=== PATIENT | male | born 1965 | race Hispanic/Latino ===

== ENCOUNTER 2020-08-21 19:49 | Emergency (ER) | payer SELFPAY ==
[2020-08-21] MEDS ORDERED: ACETAMINOPHEN 325 MG TAB PO PRN (20:28)
[2020-08-21] MEDS ORDERED: ALUM-MAG HYDROXIDE-SIMETHICONE 200-200-20MG/5ML ORAL LIQD 30 ML PO PRN (20:28)
[2020-08-21] MEDS ORDERED: MAGNESIUM HYDROXIDE (MOM) ORAL LIQD UDC PO PRN (20:28)
[2020-08-21] MEDS ORDERED: LORazepam 2 MG TAB PO PRN (20:30)
[2020-08-21] MEDS ORDERED: chlordiazePOXIDE 25 MG CAP PO PRN (20:30)
--- NOTE | 2020-08-21 20:32 | Emergency Department Report ---
ED Psych HPI - General Chief Complaint: Psych Stated Complaint: MH EVALUATION Time Seen by Provider: 08/21/20 20:15 Source: patient, EMS Mode of arrival: Ambulatory Limitations: No Limitations - History of Present Illness Initial Comments: Chief complaint: "I am having a nervous breakdown." HPI: This is a 54-year-old gentleman with history of bipolar disorder, alcohol abuse who presents with suicidal ideation and depression. He is having relationship difficulties with spouse. He was sent via EMS from [facility] for evaluation. He denies any physical complaints. He does not have a plan to harm himself or others. MD Complaint: suicidal ideation, feels depressed -: Gradual, days(s) (Several days) Associated Psychiatric Symptoms: depression, suicidal ideation History of same: Yes Quality: constant Improves With: none Worsens With: none Context: recent alcohol abuse Associated Symptoms: denies other symptoms Treatments Prior to Arrival: none If Self Harm: admits thoughts of - Related Data Home Medications Medication Instructions Recorded Confirmed Last Taken Unobtainable 08/22/20 08/22/20 Unknown Allergies Allergy/AdvReac Type Severity Reaction Status Date / Time No Known Allergies Allergy Unverified 08/21/20 20:07 ED Review of Systems ROS: Stated complaint: MH EVALUATION Other details as noted in HPI Comment: All other systems reviewed and negative Constitutional: denies: fever, malaise Respiratory: denies: cough, shortness of breath Cardiovascular: denies: chest pain Gastrointestinal: denies: abdominal pain, nausea, vomiting Psychiatric: depression ED Past Medical Hx - Past Medical History Previous Medical History?: Yes Hx Hypertension: Yes Hx Psychiatric Treatment: Yes (biupolar, schizophrenia) - Surgical History Past Surgical History?: No - Social History Smoking Status: Current Every Day Smoker Substance Use Type: None - Medications Home Medications: Home Medications Medication Instructions Recorded Confirmed Last Taken Type Unobtainable 08/22/20 08/22/20 Unknown History ED Physical Exam - General Limitations: No Limitations General appearance: alert, in no apparent distress, other (Mild tremor when ambulating) - Head Head exam: Present: atraumatic, normocephalic - Eye Eye exam: Present: normal appearance - ENT ENT exam: Present: mucous membranes moist - Neck Neck exam: Present: normal inspection, full ROM - Respiratory Respiratory exam: Present: normal lung sounds bilaterally. Absent: respiratory distress, wheezes, rales, rhonchi - Cardiovascular Cardiovascular Exam: Present: regular rate, normal rhythm, normal heart sounds. Absent: systolic murmur, diastolic murmur, rubs, gallop - GI/Abdominal GI/Abdominal exam: Present: soft, normal bowel sounds. Absent: distended, tenderness, guarding, rebound - Extremities Exam Extremities exam: Present: normal inspection - Back Exam Back exam: Present: normal inspection - Neurological Exam Neurological exam: Present: alert, oriented X3 - Psychiatric Psychiatric exam: Present: depressed, flat affect - Skin Skin exam: Present: warm, dry, intact, normal color. Absent: rash ED Course Vital Signs 08/21/20 08/21/20 08/22/20 19:58 20:05 01:21 Temperature 98.8 F 98.8 F 97.6 F Pulse Rate 103 H 101 H 95 H Respiratory 18 20 18 Rate Blood Pressure 126/87 139/72 Blood Pressure 126/87 [Left] O2 Sat by Pulse 95 98 96 Oximetry 08/22/20 08/22/20 08:15 16:22 Temperature 97.7 F 97.9 F Pulse Rate 70 79 Respiratory 20 18 Rate Blood Pressure Blood Pressure 153/86 149/88 [Left] O2 Sat by Pulse 100 99 Oximetry ED Medical Decision Making - Lab Data Result diagrams: 08/21/20 20:45 08/21/20 20:45 - Medical Decision Making This is a 54-year-old gentleman with a history of bipolar disorder and alcohol abuse. Patient has depression and suicidal ideation. Patient is medically clear for psychiatric care. He has been placed on CIWA protocol. Involuntary hold not indicated at this time. I reviewed labs obtained CBC chemistry acetaminophen salicylate levels all within normal limits. UDS negative. Urinalysis negative for infection. Blood alcohol was elevated above the legal limit. We will repeat blood alcohol level in the morning. Critical care attestation.: If time is entered above; I have spent that time in minutes in the direct care of this critically ill patient, excluding procedure time. ED Disposition Clinical Impression: Bipolar disorder, Alcohol dependence, Suicidal ideation Disposition: DC-01 TO HOME OR SELFCARE Is pt being admited?: No Does the pt Need Aspirin: No Condition: Stable
[2020-08-21 20:57] LABS: Basophils # (Auto) 0.1 K/mm3 (0.0-0.1); Basophils % (Auto) 1.3 % (0.0-1.8); Eosinophils # (Auto) 0.1 K/mm3 (0.0-0.4); Eosinophils % (Auto) 1.2 % (0.0-4.3); Hematocrit 42.3 % (35.5-45.6); Hemoglobin 14.8 gm/dl (11.8-15.2); Lymphocytes # (Auto) 2.9 K/mm3 (1.2-5.4); Lymphocytes % (Auto) 27.9 % (13.4-35.0); Mean Corpuscular HGB Conc 35 % (32-34); Mean Corpuscular Volume 93 fl (84-94); Monocytes # (Auto) 0.5 K/mm3 (0.0-0.8); Platelet Count 203 K/mm3 (140-440); Red Blood Count 4.57 M/mm3 (3.65-5.03); Red Cell Distribution Width 15.1 % (13.2-15.2)
[2020-08-21 21:01] LABS: Bilirubin,Urine NEG (Negative); Blood,Urine NEG (Negative); Color,Urine Straw (Yellow); Protein,Urine <15 mg/dL mg/dL (Negative); Urobilinogen,Urine < 2.0 mg/dL (<2.0); WBC,Urine < 1.0 /HPF (0.0-6.0)
[2020-08-21 21:15] LABS: Amphetamine Screen,Urine PRESUMPTIVE NEGATIVE; Benzodiazepines Screen,Urine PRESUMPTIVE NEGATIVE; Cannabinoid Screen,Urine PRESUMPTIVE NEGATIVE; Cocaine Screen,Urine PRESUMPTIVE NEGATIVE; Methadone Screen,Urine PRESUMPTIVE NEGATIVE; Opiate Screen,Urine PRESUMPTIVE NEGATIVE
[2020-08-21 21:20] LABS: Alanine Aminotransferase 17 units/L (7-56); Albumin 4.6 g/dL (3.9-5); BUN/Creatinine Ratio 11; Blood Urea Nitrogen 10 mg/dL (9-20); Calcium 9.2 mg/dL (8.4-10.2); Hemolysis Index 20
[2020-08-22 16:23] VITALS: BP 149/88
== END 2020-08-22 16:22 | disposition home or self-care (01) ==
LOC: ED 19:49 → EEVIPCON 19:49 → ED 08-22 16:22
DX: F25.0 Schizoaffective disorder, bipolar type (principal); F10.20 Alcohol dependence, uncomplicated; R45.851 Suicidal ideations; I10 Essential (primary) hypertension; F17.200 Nicotine dependence, unspecified, uncomplicated; Z79.899 Other long term (current) drug therapy
CPT/HCPCS: 36415; 80053; 80307; 80320; 81001; 85025; G0480

== ENCOUNTER 2020-08-22 20:54 | Emergency (ER) | payer SELFPAY ==
[2020-08-22 21:11] VITALS: BP 136/89
--- NOTE | 2020-08-22 21:12 | Emergency Department Report ---
Chief Complaint: Medical Clearance Stated Complaint: i have no where to do Time Seen by Provider: 08/22/20 21:04 - HPI History of Present Illness: The patient was evaluated in the emergency department for symptoms described in the history of present illness. He/she was evaluated in the context of the global COVID-19 pandemic, which necessitated consideration that the patient might be at risk for infection with the virus that causes COVID-19. Institutional protocols and algorithms that pertain to the evaluation of patients at risk for COVID-19 are in a state of rapid change based on information released by regulatory bodies including the CDC and federal and [facility] organizations. These policies and algorithms were followed during the patient's care in the emergency department. Please note that these policies, procedures and recommendations changed on a rapid basis. EMS documentation not available at time of chart dictation Old medical records reviewed Patient is a 54-year-old gentleman. He was seen in this department last night into This afternoon. He was seen for alcohol intoxication, and reported psychiatric complaints. He was cleared by psychiatry as per the following recommendations, sobered up, and was actually witnessed by myself to be leaving this department, ambulatory with a steady gait as per documentation from psychiatry is recent evaluation: "Pt reports homelessness. Pt is unemployed. Pt denies legal issues. Pt reports decline in sleep/appetite, informing political analyst that he has not been getting enough. Recommendations: At this time pt presents with depression, alcohol abuse, homeless. Pt does not meet criteria for IP Tx. Pt provided with OP Resources, [facility]Safety [facility], Homeless Resources. Pt can D/C if medically cleared. " The patient was medically cleared. He now presents to the ER with a complaint of "I have nowhere to go." The patient presents as alert and oriented, sober, cooperative. The patient does not meet criteria for 1013 at this time. He has a number of chronic nonmodifiable risk factors, such as homelessness. Patient is likely presenting for food and/or penitentiary, and placing the patient on hold status for 1013 will serve to reinforce maladaptive behaviors. Vital signs as documented. Skin warm and dry and without overt rashes. Neck without JVD. Lungs clear. Heart exam notable for regular rhythm, normal sounds and absence of murmurs, rubs or gallops. Abdomen unremarkable and without evidence of organomegaly, masses, or abdominal aortic enlargement. Extremities nonedematous. No facial droop. Tongue midline. Extraocular movements intact bilaterally. Facial sensation intact to light touch in V1, V2, V3 distribution bilaterally. 5 and a 5 strength in 4 extremities. Sensation intact to light touch in 4 extremities. 2+ pulses noted in the bilateral upper and lower extremities. There is no palpable cord. negative Homans sign. Muscular compartments are soft. The pelvis is stable. The patient does not appear to have an emergent medical condition at this time. He is counseled that he may go to a local psychiatric facility, such as [place], or [place], If he so desires further evaluation. MSE screening note: Focused history and physical exam performed. Due to findings the following was ordered: ED Disposition for MSE Condition: Stable Referrals: PRIMARY CARE, [Primary Care Provider] - 3-5 Days
== END 2020-08-22 21:27 | disposition home or self-care (01) ==
LOC: ED 20:54
DX: F32.9 Major depressive disorder, single episode, unspecified (principal); F10.10 Alcohol abuse, uncomplicated; Z59.0 Homelessness
CPT/HCPCS: 99283